=== PATIENT | female | born 1985 | race African-American/Black ===

== ENCOUNTER 2024-11-21 13:43 | Inpatient (IN) | payer MEDICAID, OTHER ==
[~2024-11-21] VITALS: Ht 172.7 cm; Wt 103.0 kg
[2024-11-21 13:44] VITALS: O2SAT 100
[2024-11-21] MEDS ORDERED: LORAZEPAM 2MG/ML INJ IV ONE (14:45)
[2024-11-21] MEDS ORDERED: LORAZEPAM 2MG/ML UD SYRINGE IV SCH (15:00)
[2024-11-21] MEDS: ACETAMINOPHEN 325MG TABLET PO ONE (15:01)
[2024-11-21] MEDS: MORPHINE SULFATE 4 MG/ML INJ (FOR IV/IM USE) IV ONE (15:21)
[2024-11-21] MEDS: ONDANSETRON 4MG ODT PO ONE (15:22)
[2024-11-21] MEDS: KETOROLAC 15MG/ML VIAL IV ONE (15:22)
[2024-11-21] MEDS: BACITRACIN 14GM TUBE TOP ONE (15:31)
[2024-11-21 15:36] LABS: EOSINOPHILS % 3.2 % (0.0-5.0); HEMATOCRIT. 32.5 % (36.0-48.0); HEMOGLOBIN. 10.8 g/dL (12.0-16.0); LYMPHOCYTES % 15.8 % (20.0-50.0); MEAN CORPUSCULAR HEMOGLOBIN 28.2 pg (28.0-32.0); MEAN CORPUSCULAR HGB CONC 33.2 g/dL (31.0-37.0); MEAN PLATELET VOLUME 8.6 fl (7.4-10.4); MONOCYTES % 10.5 % (2.0-8.0); NEUTROPHILS % 69.5 % (40.0-76.0); PLATELET 272 x1000/uL (130-400); RED BLOOD CELL COUNT 3.83 mill/uL (4.2-5.4); RED CELL DISTRIBUTION WIDTH 14.1 % (11.6-14.6); WHITE BLOOD COUNT 5.5 x1000/uL (4.5-11.0)
[2024-11-21 15:43] LABS: CHLORIDE 110 mEq/L (98-107); SODIUM 141 mEq/L (136-145)
[2024-11-21 15:44] LABS: CALCIUM 9.3 mg/dL (8.7-10.4); CARBON DIOXIDE 24 mEq/L (21-32)
[2024-11-21 15:49] LABS: CREATININE 0.9 mg/dL (0.6-1.0); GLUCOSE 133 mg/dL (70-105); UREA NITROGEN BLOOD 14 mg/dL (9-23)
[2024-11-21] MEDS: CEFTRIAXONE 1GM/50ML 50 ML IV ONE (15:49)
[2024-11-21 15:51] LABS: ALANINE AMINOTRANSFERASE 11 IU/L (10-49); ASPARTATE AMINOTRANSFERASE 24 IU/L (<34)
[2024-11-21 15:52] LABS: BILIRUBIN TOTAL 0.3 mg/dL (0.1-1.0)
[2024-11-21 16:04] LABS: HCG SCREEN NEGATIVE
[2024-11-21 18:51] VITALS: BP 145/96; PULSE 72; RESP 15; TEMP 36.8; O2SAT 99
[2024-11-21] MEDS ORDERED: LIDOCAINE HCL 1% 10 MG/ML 10ML VIAL ONE ×2 (19:51→20:47)
[2024-11-21] MEDS ORDERED: MORPHINE SULFATE 4 MG/ML INJ (FOR IV/IM USE) IV PRN (20:22)
[2024-11-21] MEDS ORDERED: DEXT 5%/0.45% NACL 1000ML 1,000 ML IV SCH (20:45)
[2024-11-21] MEDS ORDERED: PROPOFOL 200MG/20ML VIAL IV ONE (20:45)
[2024-11-21] MEDS ORDERED: ROCURONIUM BROMIDE 10MG/ML VIAL 5ML IV ONE (20:45)
[2024-11-21] MEDS ORDERED: MIDAZOLAM HCL 2 MG/2 ML VIAL ONE (20:57)
[2024-11-21] MEDS ORDERED: FENTANYL CITRATE/PF 50MCG/ML 2ML VIAL ONE ×2 (20:58→21:59)
[2024-11-21] MEDS ORDERED: GLYCOPYRROLATE 0.2 MG/ML 2ML VIAL ONE ×2 (22:26→22:27)
[2024-11-21] MEDS ORDERED: ONDANSETRON HCL 4MG/2ML INJ ONE (22:26)
[2024-11-21] MEDS ORDERED: NEOSTIGMINE METHYLSULFATE 1MG/ML 10 ML VIAL ONE (22:27)
[2024-11-21] MEDS ORDERED: CEFAZOLIN SODIUM 1000MG/VIAL ONE (22:28)
[2024-11-21] MEDS ORDERED: ONDANSETRON HCL 4MG/2ML INJ IV PRN (23:00)
[2024-11-21] MEDS ORDERED: HYDROMORPHONE HCL/PF 1MG/ML INJ IV PRN (23:00)
[2024-11-21] MEDS ORDERED: NALOXONE HCL 0.4MG/ML VIAL IV PRN (23:45)
[2024-11-22] VITALS: BP 141/93; PULSE 90; RESP 20; TEMP 36.9; O2SAT 98
== END 2024-11-22 00:38 | disposition left against medical advice (07) | DRG 906 ==
LOC: ER 13:43 → EDBEDREQ 17:27 → EDBEDREQTM 17:27 → ER 18:00 → 8EST 18:47
PROVIDERS: ADMIT Internal Medicine; ATTEND Internal Medicine
PROC: 0JQK0ZZ Repair Left Hand Subcutaneous Tissue and Fascia, Open Approach (ICD-10-PCS; principal; 2024-11-21)
PROC: 0HDGXZZ Extraction of Left Hand Skin, External Approach (ICD-10-PCS; 2024-11-21)
DX: S68.121A Partial traumatic metacarpophalangeal amputation of left index finger, initial encounter (principal); X58.XXXA Exposure to other specified factors, initial encounter; F17.200 Nicotine dependence, unspecified, uncomplicated; Z53.21 Procedure and treatment not carried out due to patient leaving prior to being seen by health care provider; F20.9 Schizophrenia, unspecified; F41.9 Anxiety disorder, unspecified; Y93.89 Activity, other specified; Y92.89 Other specified places as the place of occurrence of the external cause; Y99.8 Other external cause status
CPT/HCPCS: 36415; 73140; 80053; 84703; 85025; 99285; A4606; J0690; J0696; J1885; J2003; J2060; J2250; J2270; J2405; J2704; J2710; J3010; J3490; Q0162

== ENCOUNTER 2024-12-09 18:56 | Inpatient (IN) | payer OTHER ==
[~2024-12-09] VITALS: Ht 170.2 cm; Wt 95.3 kg
[2024-12-10] VITALS (7 sets, daily range): BP systolic 110–149; BP diastolic 60–99; PULSE 72–87; RESP 18–20; TEMP 36.3–37.1; O2SAT 98–100
[2024-12-10 00:12] LABS: BASOPHILS % 0.8 % (0.0-2.0); EOSINOPHILS % 2.4 % (0.0-5.0); HEMATOCRIT. 31.8 % (36.0-48.0); HEMOGLOBIN. 10.4 g/dL (12.0-16.0); LYMPHOCYTES % 29.4 % (20.0-50.0); MEAN CORPUSCULAR HEMOGLOBIN 28.3 pg (28.0-32.0); MEAN CORPUSCULAR HGB CONC 32.7 g/dL (31.0-37.0); MEAN CORPUSCULAR VOLUME 86.5 fL (81.0-99.0); MEAN PLATELET VOLUME 8.5 fl (7.4-10.4); MONOCYTES % 9.1 % (2.0-8.0); NEUTROPHILS % 58.3 % (40.0-76.0); PLATELET 322 x1000/uL (130-400); RED BLOOD CELL COUNT 3.67 mill/uL (4.2-5.4); RED CELL DISTRIBUTION WIDTH 15.3 % (11.6-14.6); WHITE BLOOD COUNT 7.2 x1000/uL (4.5-11.0)
[2024-12-10 00:20] LABS: CHLORIDE 106 mEq/L (98-107); POTASSIUM 4.1 mEq/L (3.5-5.1); SODIUM 141 mEq/L (136-145)
[2024-12-10 00:21] LABS: CALCIUM 9.7 mg/dL (8.7-10.4); CARBON DIOXIDE 27 mEq/L (21-32)
[2024-12-10 00:22] LABS: PROTHROMBIN TIME 10.3 sec (9.6-11.0)
[2024-12-10 00:26] LABS: CREATININE 0.8 mg/dL (0.6-1.0); GLUCOSE 80 mg/dL (70-105)
[2024-12-10 00:27] LABS: UREA NITROGEN BLOOD 8 mg/dL (9-23)
[2024-12-10 00:28] LABS: ALANINE AMINOTRANSFERASE 10 IU/L (10-49); ALBUMIN 4.2 g/dL (3.2-4.8); ASPARTATE AMINOTRANSFERASE 15 IU/L (<34)
[2024-12-10 00:29] LABS: BILIRUBIN DIRECT < 0.1 mg/dL (<=3.0); BILIRUBIN TOTAL 0.2 mg/dL (0.1-1.0); PROTEIN TOTAL 6.8 g/dL (6.0-8.3)
[2024-12-10] MEDS: SODIUM CHLORIDE 0.9% 1,000 ML IV ONE (00:38)
[2024-12-10] MEDS: PIPERACILLIN/TAZO 3.375G/50ML 50 ML IV ONE (00:47)
[2024-12-10] MEDS: VANCOMYCIN 1G PREMIX 200 ML IV ONE (00:56)
[2024-12-10 03:58] LABS: CLARITY URINE CLEAR (CLEAR); COLOR URINE YELLOW (YELLOW); GLUCOSE URINE NEGATIVE (NEGATIVE); KETONES URINE NEGATIVE (NEGATIVE); LEUKOCYTE ESTERASE URINE NEGATIVE (NEGATIVE); NITRITE URINE NEGATIVE (NEGATIVE); OCCULT BLOOD URINE NEGATIVE (NEGATIVE); PROTEIN URINE NEGATIVE (NEGATIVE); UROBILINOGEN URINE 0.2 E.U./dL (0.2-1.0)
[2024-12-10] MEDS ORDERED: NALOXONE HCL 0.4MG/ML VIAL IV PRN (06:15)
[2024-12-10] MEDS: CITALOPRAM HYDROBROMIDE 10MG TABLET PO SCH (08:54)
[2024-12-10] MEDS: OXYCODONE HCL/ACETAMINOPHEN 5/325MG TABLET PO PRN (08:55)
[2024-12-10] MEDS: PIPERACILLIN/TAZO 3.375G/50ML 50 ML IV SCH ×2 (08:55→13:35)
[2024-12-10] MEDS: QUETIAPINE FUMARATE 50MG TABLET PO SCH (08:55)
[2024-12-10] MEDS ORDERED: IPRATROPIUM/ALBUTEROL 0.5-3(2.5)MG/3ML NEB HHN PRN (10:15)
[2024-12-10] MEDS ORDERED: CLONIDINE 0.1MG TABLET PO PRN (10:15)
[2024-12-10] MEDS ORDERED: DOCUSATE SODIUM 100MG CAPSULE PO PRN (10:15)
[2024-12-10] MEDS ORDERED: ACETAMINOPHEN 325MG TABLET PO PRN ×2 (10:15)
[2024-12-10] MEDS ORDERED: ONDANSETRON HCL 4MG/2ML INJ IV PRN (10:15)
[2024-12-10] MEDS: FAMOTIDINE 20MG/2ML VIAL IV SCH (10:30)
[2024-12-10 12:45] LABS: *AMPHETAMINES SCREEN URINE NEGATIVE (NEGATIVE); *BARBITURATES SCREEN URINE NEGATIVE (NEGATIVE); *BENZODIAZEPINES SCREEN URINE NEGATIVE (NEGATIVE); *COCAINE SCREEN URINE NEGATIVE (NEGATIVE); CANNABINOID URINE SCREEN PRESUMPTIVE POSITIVE (NEGATIVE); ECSTASY MDMA SCREEN URINE NEGATIVE (NEGATIVE); METHADONE URINE SCREEN NEGATIVE (NEGATIVE); OPIATES URINE SCREEN NEGATIVE (NEGATIVE); PHENCYCLIDINE URINE SCREEN NEGATIVE (NEGATIVE)
[2024-12-10 13:02] LABS: BASOPHILS % 0.3 % (0.0-2.0); EOSINOPHILS % 2.3 % (0.0-5.0); HEMATOCRIT. 30.1 % (36.0-48.0); HEMOGLOBIN. 9.8 g/dL (12.0-16.0); LYMPHOCYTES % 24.3 % (20.0-50.0); MEAN CORPUSCULAR HEMOGLOBIN 27.8 pg (28.0-32.0); MEAN CORPUSCULAR HGB CONC 32.5 g/dL (31.0-37.0); MEAN CORPUSCULAR VOLUME 85.4 fL (81.0-99.0); MEAN PLATELET VOLUME 8.3 fl (7.4-10.4); NEUTROPHILS % 65.1 % (40.0-76.0); PLATELET 289 x1000/uL (130-400); RED BLOOD CELL COUNT 3.52 mill/uL (4.2-5.4); RED CELL DISTRIBUTION WIDTH 15.4 % (11.6-14.6)
[2024-12-10 13:10] LABS: CHLORIDE 107 mEq/L (98-107); POTASSIUM 4.2 mEq/L (3.5-5.1); SODIUM 141 mEq/L (136-145)
[2024-12-10 13:11] LABS: CALCIUM 9.5 mg/dL (8.7-10.4); CARBON DIOXIDE 29 mEq/L (21-32)
[2024-12-10 13:16] LABS: CREATININE 0.8 mg/dL (0.6-1.0); GLUCOSE 109 mg/dL (70-105); IRON 55 ug/dL (50-170); UREA NITROGEN BLOOD 7 mg/dL (9-23)
[2024-12-10 13:18] LABS: ALANINE AMINOTRANSFERASE 9 IU/L (10-49); ALBUMIN 3.7 g/dL (3.2-4.8); ASPARTATE AMINOTRANSFERASE 12 IU/L (<34); BILIRUBIN DIRECT < 0.1 mg/dL (<=3.0); PHOSPHORUS 4.2 mg/dL (2.5-4.9)
[2024-12-10 13:19] LABS: BILIRUBIN TOTAL 0.3 mg/dL (0.1-1.0); TOTAL IRON BINDING CAPACITY 228 ug/dl (250-425)
[2024-12-10 13:22] LABS: FERRITIN 17 ng/mL (10-291); FOLIC ACID (FOLATE) SERUM 11.92 ng/mL (>5.38); VITAMIN B12 SERUM 302 pg/mL (211-911)
[2024-12-10] MEDS: HYDRALAZINE HCL 25MG TABLET PO SCH (14:00)
[2024-12-10 16:39] LABS: PROTHROMBIN TIME 10.4 sec (9.6-11.0)
[2024-12-10] MEDS: TRAZODONE HCL 50MG TABLET PO SCH (21:22)
[2024-12-11 04:00] VITALS: BP 143/95; PULSE 70; RESP 18; TEMP 37.4; O2SAT 100
[2024-12-11 08:00] VITALS: BP 143/86; PULSE 75; RESP 18; TEMP 36.3; O2SAT 99
[2024-12-11 09:03] LABS: BASOPHILS % 0.4 % (0.0-2.0); EOSINOPHILS % 2.8 % (0.0-5.0); HEMATOCRIT. 32.9 % (36.0-48.0); HEMOGLOBIN. 10.6 g/dL (12.0-16.0); MEAN CORPUSCULAR HEMOGLOBIN 27.8 pg (28.0-32.0); MEAN CORPUSCULAR HGB CONC 32.3 g/dL (31.0-37.0); MEAN PLATELET VOLUME 8.8 fl (7.4-10.4); MONOCYTES % 8.5 % (2.0-8.0); NEUTROPHILS % 57.3 % (40.0-76.0); PLATELET 310 x1000/uL (130-400); RED BLOOD CELL COUNT 3.82 mill/uL (4.2-5.4); RED CELL DISTRIBUTION WIDTH 15.6 % (11.6-14.6); WHITE BLOOD COUNT 5.9 x1000/uL (4.5-11.0)
[2024-12-11 09:05] LABS: CHLORIDE 104 mEq/L (98-107); POTASSIUM 4.4 mEq/L (3.5-5.1); SODIUM 139 mEq/L (136-145)
[2024-12-11 09:06] LABS: CARBON DIOXIDE 29 mEq/L (21-32)
[2024-12-11 09:07] LABS: CALCIUM 9.6 mg/dL (8.7-10.4)
[2024-12-11 09:11] LABS: CREATININE 0.8 mg/dL (0.6-1.0); GLUCOSE 108 mg/dL (70-105); UREA NITROGEN BLOOD 6 mg/dL (9-23)
[2024-12-11 12:00] VITALS: BP 155/104; PULSE 72; RESP 18; TEMP 36.7; O2SAT 100
[2024-12-11 16:00] VITALS: BP 120/84; PULSE 84; RESP 18; TEMP 36.5; O2SAT 100
[2024-12-11 17:06] VITALS: BP 120/84; PULSE 84; TEMP 97.7; O2SAT 100
[2024-12-11] MEDS ORDERED: QUETIAPINE FUMARATE 200MG TABLET PO SCH (21:00)
== END 2024-12-11 17:25 | disposition home or self-care (01) | DRG 566 ==
LOC: ER 18:56 → 6EST 12-10 03:14 → ENRESERV 12-10 03:51
PROVIDERS: ADMIT Internal Medicine; ATTEND Internal Medicine
DX: T87.42 Infection of amputation stump, left upper extremity (principal); Y83.8 Other surgical procedures as the cause of abnormal reaction of the patient, or of later complication, without mention of misadventure at the time of the procedure; Y92.89 Other specified places as the place of occurrence of the external cause; L03.012 Cellulitis of left finger; D64.9 Anemia, unspecified; F17.210 Nicotine dependence, cigarettes, uncomplicated; I10 Essential (primary) hypertension
CPT/HCPCS: 36415; 73200; 80048; 80076; 80305; 81003; 82607; 82728; 82746; 83540; 83550; 83735; 84100; 85025; 99285; J1308; J2543; J3370; J7030

== ENCOUNTER 2025-01-07 23:21 | Emergency (ER) | payer OTHER ==
[~2025-01-07] VITALS: Ht 172.7 cm; Wt 95.0 kg
[2025-01-07 23:38] VITALS: O2SAT 100
[2025-01-08 00:49] VITALS: BP 153/97; PULSE 100; RESP 20; TEMP 36.6; O2SAT 100
== END 2025-01-08 00:51 | disposition home or self-care (01) ==
LOC: ER 23:58
DX: I96 Gangrene, not elsewhere classified (principal); M79.645 Pain in left finger(s); F20.9 Schizophrenia, unspecified; F41.9 Anxiety disorder, unspecified; F12.90 Cannabis use, unspecified, uncomplicated; Z98.890 Other specified postprocedural states
CPT/HCPCS: 73130; 99283

== ENCOUNTER 2025-01-15 17:14 | Emergency (ER) | payer OTHER ==
[~2025-01-15] VITALS: Ht 167.6 cm; Wt 75.0 kg
[2025-01-15 17:15] VITALS: O2SAT 100
[2025-01-15 17:38] VITALS: BP 113/61; PULSE 103; RESP 14; TEMP 36.9; O2SAT 100
== END 2025-01-15 19:44 | disposition home or self-care (01) ==
LOC: ER 17:14
DX: I96 Gangrene, not elsewhere classified (principal); F20.9 Schizophrenia, unspecified; F41.9 Anxiety disorder, unspecified; F12.90 Cannabis use, unspecified, uncomplicated; Z88.0 Allergy status to penicillin; Z98.890 Other specified postprocedural states; Z89.022 Acquired absence of left finger(s)
CPT/HCPCS: 99281; 99282

== ENCOUNTER 2025-01-18 16:51 | Emergency (ER) | payer OTHER ==
[~2025-01-18] VITALS: Ht 170.2 cm; Wt 91.0 kg
[2025-01-18] MEDS: ONDANSETRON HCL 4MG/2ML INJ IV ONE (17:58)
[2025-01-18] MEDS: MORPHINE SULFATE 4 MG/ML INJ (FOR IV/IM USE) IV ONE (17:59)
[2025-01-18] MEDS: PROPOFOL 200MG/20ML VIAL IV ONE (18:45)
[2025-01-18] MEDS: SODIUM CHLORIDE 0.9% 1,000 ML IV ONE (18:55)
[2025-01-18] MEDS: KETOROLAC 15MG/ML VIAL IV ONE (18:55)
[2025-01-18] MEDS: FENTANYL CITRATE/PF 50MCG/ML 2ML VIAL IV ONE (19:45)
[2025-01-18] MEDS: LIDOCAINE HCL 1% 20ML VIAL INFIL ONE (19:45)
[2025-01-18 22:10] VITALS: RESP 16; O2SAT 100
[2025-01-18] MEDS ORDERED: HYDR-4001 MT (23:20)
[2025-01-18] MEDS ORDERED: IBUP-2029 MT (23:20)
[2025-01-18 23:30] VITALS: BP 154/99; PULSE 80; RESP 20; TEMP 36.7; O2SAT 100; O2SAT 99
== END 2025-01-18 23:30 | disposition home or self-care (01) ==
LOC: ER 16:56
DX: S52.501A Unspecified fracture of the lower end of right radius, initial encounter for closed fracture (principal); F20.9 Schizophrenia, unspecified; Z88.0 Allergy status to penicillin; Z79.899 Other long term (current) drug therapy; S63.004A Unspecified dislocation of right wrist and hand, initial encounter; X58.XXXA Exposure to other specified factors, initial encounter; Y93.89 Activity, other specified; Y92.89 Other specified places as the place of occurrence of the external cause; Y99.8 Other external cause status
CPT/HCPCS: 71045; 73090; 73110; 98960; 25605; 96361; 96374; 96375; 99152; 99285; J3010; J1885; J2003; J2405; J2704; J2270; J7030; Z7610 ×4; 94070; 94664